=== PATIENT | female | born 1965 | race Caucasian/White ===

== ENCOUNTER 2017-08-23 03:37 | Emergency (ER) | payer OTHER ==
[~2017-08-23] VITALS: Ht 152.4 cm; Wt 68.0 kg
[2017-08-23 04:10] VITALS: BP 152/78
[2017-08-23] MEDS ORDERED: Solu-MEDROL 125mg Inj IVP ONE (04:30)
--- NOTE | 2017-08-23 04:33 | Emergency Room Report ---
History of Present Illness General Chief Complaint: Skin Rash/Abscess Source: Patient (CHEIKH NGUYEN M.D.) Present Illness HPI 51YOF walk-in with 6 days of rash to whole body Associated with itch Denies new medication, soap, detergent, pets, apartment, foreign travel Had "a lot of potato salad." Known allergy to onions Was given benadryl but "only made me tired." Denies taking any new meds Denies airway tightness, swelling of lips, SOB, chest pain C/o mild stomach discomfort (CHEIKH NGUYEN M.D.) Allergies: Uncoded Allergies: ONIONS (Allergy, Unknown, 08/23/17) Patient History Past Medical History: none Past Surgical History: none Pertinent Family History: none Social History: Denies: smoking, alcohol use, drug use Last Menstrual Period: MARCH 2017 Now: No Immunizations: UTD Reviewed Nursing Documentation: PMH: Agreed, PSxH: Agreed (CHEIKH NGUYEN M.D.) Nursing Documentation-PMH Hx Gastrointestinal Problems: Yes - IBS,GASTRITIS (CHEIKH NGUYEN M.D.) Review of Systems All Other Systems: negative except mentioned in HPI (CHEIKH NGUYEN M.D.) Physical Exam Vital Signs Date Time Temp Pulse Resp B/P (MAP) Pulse Ox O2 Delivery O2 Flow Rate FiO2 08/23/17 03:47 97.3 102 18 152/78 98 Room Air Sp02 EP Interpretation: reviewed, normal General Appearance: normal inspection, well appearing, no apparent distress, alert, GCS 15, non-toxic Head: normocephalic, atraumatic Eyes: bilateral eye PERRL, bilateral eye EOMI ENT: normal ENT inspection, hearing grossly normal, normal voice Neck: normal inspection, full range of motion, supple, no bony tend Respiratory: normal inspection, lungs clear, normal breath sounds, no respiratory distress, no retraction, no wheezing Cardiovascular #1: regular rate, rhythm, no edema Gastrointestinal: normal inspection, normal bowel sounds, non tender, soft, no guarding, no hernia Genitourinary: no CVA tenderness Musculoskeletal: normal inspection, back normal, normal range of motion, Juanita' s Sign negative Neurologic: normal inspection, alert, oriented x3, responsive, assistant account executive III-XII nml as tested, speech normal Psychiatric: normal inspection, judgement/insight normal, mood/affect normal Skin: normal inspection, warm/dry, other - Diffuse areas or urticaria throughout body - face, torso, abdomen, extremities. No vesicles. (CHEIKH NGUYEN M.D.) Medical Decision Making Diagnostic Impression: Primary Impression: Rash and other nonspecific skin eruption Additional Impression: Hives ER Course VSS. Afebrile Diffuse urticaria/hives Airway patent Unlikely Baldo/Steve or other infectious process requiring admission, further acute evaluation/management IV steroids, pepcid and PO Zyrtec given with improvement Labs: Mild leuks. H&h stable. No other major abnormalities Rx: Prednisone PMD followup for Derm referral (CHEIKH NGUYEN M.D.) ER Course 51-year-old female, rash for 2 weeks, received steroids and Benadryl Patient reports that itchiness is improved Has been sleeping comfortably, in no respiratory issues Will discharge home with PMD followup Also advised her to see an flarer (Kelvin De La Torre M.D.) Last Vital Signs Date Time Temp Pulse Resp B/P (MAP) Pulse Ox O2 Delivery O2 Flow Rate FiO2 08/23/17 03:47 97.3 102 18 152/78 98 Room Air Status: improved (CHEIKH NGUYEN M.D.) Disposition: HOME, SELF-CARE Scripts Famotidine (PEPCID) 40 Mg Tablet 40 MG PO DAILY for 5 Days, #5 TAB 0 Refills Prov: CHEIKH NGUYEN M.D. 08/23/17 Prednisone* (PREDNISONE*) 20 Mg Tablet 40 MG ORAL DAILY for 5 Days, #5 TAB Prov: CHEIKH NGUYEN M.D. 08/23/17 Referrals: [facility],REFERR[facility] (PCP) CHEIKH NGUYEN M.D. Aug 23, 2017 04:33 Kelvin De La Torre M.D. Aug 23, 2017 10:27
[2017-08-23 04:42] LABS: BASOPHILS % (AUTO) 0.3 % (0.0-2.0); EOSINOPHILS % (AUTO) 0.4 % (0.0-3.0); LYMPHOCYTES % (AUTO) 23.1 % (20.0-45.0); MEAN CORPUSCULAR HEMOGLOBIN 31.5 PG (27.0-31.0); MEAN CORPUSCULAR HGB CONC 34.2 G/DL (32.0-36.0); MEAN CORPUSCULAR VOLUME 92 FL (80-99); MEAN PLATELET VOLUME 6.6 FL (6.5-10.1); MONOCYTES % (AUTO) 3.3 % (1.0-10.0); PLATELET COUNT 348 K/UL (150-450); RED BLOOD COUNT 4.23 M/UL (4.20-5.40); RED CELL DISTRIBUTION WIDTH 10.5 % (11.6-14.8); WHITE BLOOD COUNT 12.7 K/UL (4.8-10.8)
[2017-08-23 05:13] LABS: ALANINE AMINOTRANSFERASE 104 U/L (12-78); ASPARTATE AMINO TRANSFERASE 43 U/L (15-37); CALCIUM 9.5 MG/DL (8.5-10.1); CHLORIDE 97 MMOL/L (98-107); CKMB 3.1 NG/ML (0.0-3.6); CREATININE 0.9 MG/DL (0.55-1.30); GLOMERULAR FILTRATION RATE > 60 mL/min (>60); POTASSIUM 3.4 MMOL/L (3.5-5.1); SODIUM 133 MMOL/L (136-145); TOTAL PROTEIN 8.2 G/DL (6.4-8.2)
[2017-08-23] MEDS ORDERED: DiphenhydrAMINE 50mg/ml Inj IVP ONE (05:30)
[2017-08-23] MEDS ORDERED: PEPCID40 MG PO (05:43)
[2017-08-23] MEDS ORDERED: PREDNISONE20 MG ORAL (05:43)
[2017-08-23 05:56] LABS: CARBON DIOXIDE 24 MMOL/L (21-32)
[2017-08-23 06:10] VITALS: BP 142/83
[2017-08-23 09:09] VITALS: BP 122/73
[2017-08-23 09:20] VITALS: BP 122/73
== END 2017-08-23 09:24 | disposition home or self-care (01) ==
LOC: EMR 04:04
DX: R21 Rash and other nonspecific skin eruption (principal); L50.9 Urticaria, unspecified; Z91.018 Allergy to other foods; K58.9 Irritable bowel syndrome, unspecified
CPT/HCPCS: 36415; 80053; 82553; 85025; 96374; 96375; 99284; J1200; J2930; S0028

== ENCOUNTER → 2020-06-10 | Outpatient (CLI) | payer MEDICAID ==
[~2020-06-10] VITALS: Ht 152.4 cm; Wt 65.8 kg
[~2020-06-10] MED LIST: IBUPROFEN600 M1 ORAL; PEPCID40 MG PO; PREDNISONE20 MG ORAL
--- NOTE | 2020-06-10 16:15 | Consultation ---
DATE OF CONSULTATION: 06/10/2020 CHIEF COMPLAINT: Abdominal pain. HISTORY OF PRESENT ILLNESS: The patient is a 54-year-old female with history of IBS, depression, GERD complaining of some abdominal bloating in bilateral lower quadrants, no constipation. No nausea. No vomiting. No dysphagia. No odynophagia. Had some blood in the rectum, but it is most probably from the hemorrhoids. PAST MEDICAL HISTORY: 1. IBS. 2. Thyroid nodules. 3. Depression. 4. GERD. 5. Arthritis. 6. Fibromyalgia. 7. Fatty liver. PAST SURGICAL HISTORY: Appendectomy. MEDICATIONS: Please see medication reconciliation list. ALLERGIES: No known allergies. FAMILY HISTORY: No family history of GI malignancies. SOCIAL HISTORY: The patient drinks alcohol occasionally. Denies any IV drug abuse. Denies any tobacco abuse. REVIEW OF SYSTEMS: Positive for GERD, abdominal pain, bloating. According to the patient, CT of the abdomen and pelvis was done which no acute finding. PHYSICAL EXAMINATION: VITAL SIGNS: Temperature 97, blood pressure 124/70, pulse 69, respirations 20. HEENT: Normocephalic and atraumatic. Sclerae anicteric. NECK: Supple. No evidence of obvious lymphadenopathy. CARDIOVASCULAR: Regular rhythm. Plus S1 and S2. LUNGS: Clear to auscultation bilaterally. ABDOMEN: Positive bowel sounds. Soft and nontender. No rebound. No guarding. No peritoneal sign. EXTREMITIES: No cyanosis, no clubbing, no edema ASSESSMENT AND PLAN: The patient is a 54-year-old female with abdominal bloating suspicious for SIBO. The patient at this time refusing colonoscopy even though she is over 50 and never had one done before. The patient was given a prescription for VSL #3 probiotics to try for a month and come back if she is not better. We also offer her to be on antibiotics like Xifaxan for SIBO, but at this time she just wants try probiotics. Again, she was explained about the risk of not having colonoscopy and she will think about it. Wilian Ferro M.D. DR: Jovani JOB#: [id number] CC:
[2020-06-12 11:24] VITALS: BP 124/70
== END | disposition home or self-care (01) ==
LOC: PAN 09:44
DX: R10.9 Unspecified abdominal pain (principal); F32.9 Major depressive disorder, single episode, unspecified; K58.9 Irritable bowel syndrome, unspecified; K21.9 Gastro-esophageal reflux disease without esophagitis; M19.90 Unspecified osteoarthritis, unspecified site; M79.7 Fibromyalgia; Z90.89 Acquired absence of other organs; R14.0 Abdominal distension (gaseous)

== ENCOUNTER 2020-08-12 10:11 | Outpatient (CLI) | payer MEDICAID ==
[2020-08-12 10:40] VITALS: BP 122/75
[2020-08-12] MEDS ORDERED: VSL#3 CAPSULE1 EACH PO (10:41)
--- NOTE | 2020-08-12 15:22 | General Progress Note ---
Subjective ROS Limited/Unobtainable: Yes Allergies: Uncoded Allergies: ONIONS (Allergy, Unknown, 08/23/17) Objective Last 24 Hour Vital Signs Date Time Temp Pulse Resp B/P (MAP) Pulse Ox O2 Delivery O2 Flow Rate FiO2 08/12/20 10:40 97.4 67 16 122/75 100 General Appearance: alert EENT: normal ENT inspection Neck: supple Cardiovascular: normal rate Respiratory/Chest: decreased breath sounds Abdomen: normal bowel sounds, non tender, soft Extremities: non-tender Assessment/Plan Assessment/Plan: 1. IBS. 2. Thyroid nodules. 3. Depression. 4. GERD. 5. Arthritis. 6. Fibromyalgia. 7. Fatty liver. bloading better with pablo milk refusing colonoscopy again add align RTC 3 months Wilian Ferro MD Aug 12, 2020 15:22
== END 2020-08-12 12:11 | disposition home or self-care (01) ==
LOC: PAN 10:11
DX: K58.9 Irritable bowel syndrome, unspecified (principal); E04.1 Nontoxic single thyroid nodule; F32.9 Major depressive disorder, single episode, unspecified; K21.9 Gastro-esophageal reflux disease without esophagitis; M19.90 Unspecified osteoarthritis, unspecified site; M79.7 Fibromyalgia; K76.0 Fatty (change of) liver, not elsewhere classified; R14.0 Abdominal distension (gaseous)
CPT/HCPCS: 99212